=== PATIENT | female | born 1975 | race Asian ===

== ENCOUNTER → 2018-01-13 | Outpatient (REF) ==
[2018-01-13 10:45] LABS: HEPATITIS B SURFACE ANTIBODY POSITIVE (POSITIVE)
== END ==
LOC: M LAB 07:49
DX: Z02.1 Encounter for pre-employment examination (principal)

== ENCOUNTER → 2020-06-10 | Outpatient (REF) | LOC: M LAB 10:48 | PROVIDERS: ATTEND Nurse Practitioner Adult Health | DX: Z02.89 Encounter for other administrative examinations (principal) ==